=== PATIENT | female | born 1975 | race Caucasian/White ===

== ENCOUNTER 2017-03-26 20:00 | Inpatient (IN) | payer MEDICARE ==
[~2017-03-26] VITALS: Ht 167.6 cm; Wt 75.7 kg
--- NOTE | ~2017-03-26 | HP ---
Unit #: [id number] #: [id number] Patient: FAY HULL [id number] [place] [address] [id number] I MR#: [id number] NAME: FAY HULL. ROOM: 32 Age: 41 Sex: F Admission Date: 03/26/2017 : 1975 Attending Physician: Esequiel Herring M.D. Admitting Physician: Esequiel Herring M.D. Primary Care Physician: Freddy Worthy M.D. HISTORY AND PHYSICAL HISTORY OF PRESENT ILLNESS Fay is a 41 year old admitted to [address] [place] [address] with depression and verbalizing wanting to hurt herself. PAST MEDICAL HISTORY 1. History of ASD, repaired at [age] years old. 2. History of illicit drug use to include methamphetamine. PAST SURGICAL HISTORY 1. Above. 2. Low back. ALLERGIES No known drug allergies. SOCIAL HISTORY Smokes one pack per day. Denies alcohol. Admits to a history of illicit substance abuse to include methamphetamine. FAMILY HISTORY Medically noncontributory. REVIEW OF SYSTEMS CONSTITUTIONAL: No fever or chills. HEENT: Denies any sore throat, ear pain or runny nose. She does report redness in her right eye. She said she had a sty that partially resolved in the past 48 hours. She denies any problems with her vision. CARDIOVASCULAR: Denies chest pain, irregular heart rhythm or palpitations. CHEST: Denies shortness of breath or cough. No hemoptysis. GASTROINTESTINAL: Denies nausea, vomiting, diarrhea or chronic constipation. ENDOCRINE: Denies history of increased thirst or urination. No recent significant weight loss or gain. GENITOURINARY: Denies dysuria, frequency, or hematuria. SKIN: Denies any rashes. HEMATOLOGIC: Denies history of increased bleeding or bruising. MUSCULOSKELETAL: Denies any hot, swollen joints. No generalized muscle pain. NEUROLOGIC: Denies problems with vision or speech. No frequent, severe headaches. No numbness, tingling or weakness in any extremities. Denies loss of bladder or bowel control. Unit #: [id number] #: [id number] Patient: FAY HULL CURRENT MEDICATIONS 1. Celexa 20 mg q day 2. Desyrel 50 mg q.h.s. 3. Vistaril 25 mg t.i.d. 4. Nicotine patch 14 mg q day 5. Milk of Magnesia p.r.n. 6. Maalox p.r.n. 7. Tylenol p.r.n. 8. Ciloxan drops two drops q 4 hours times seven days PHYSICAL EXAMINATION GENERAL: Alert, well-nourished, in no apparent distress. VITAL SIGNS: Blood pressure 100/68, heart rate 80, respirations 16, temperature 98.6. WEIGHT: 167 pounds. HEIGHT: 5 foot 6 inches. SKIN: Warm and dry without rash or lesion. HEENT: Normocephalic. TMs not viewed. Oral and nasal passages clear. Right conjunctivae slightly injected with matting noted at the corner of the eye. Left eye normal. NECK: Supple without lymphadenopathy or thyromegaly. HEART: Regular rate and rhythm without murmur. LUNGS: Clear. ABDOMEN: Soft, nontender. : Not done. EXTREMITIES: No evidence of cyanosis, clubbing or edema. Moves all extremities without focal deficit. NEUROLOGICAL: Grossly within normal limits. Cranial Nerves: II: Visual piedra are intact. III, IV AND : Extraocular movements are intact. Pupils are equal, round and reactive to light. V: Facial sensation is grossly normal. VII: Facial movements and expression are normal. VIII: Auditory acuity grossly intact. IX, X: Uvula is midline. Phonation is normal. XI: Patient shrugs shoulders and turns head normally. XII: Tongue protrudes in the midline. Sensory and Motor Function: Sensory and motor sensation is grossly normal. Motor: moves all extremities well. Coordination: Gait is normal. Deep Tendon Reflexes: Intact. IMPRESSION 1. Psychiatric admission. 2. Right conjunctivitis. RECOMMENDATIONS PSYCHIATRIC: Per psychiatrist. MEDICAL: 1. I see no contraindications to participating in facility's activities. 2. Continue Ciloxan drops. MEDICAL PROGNOSIS Good. MEDICAL CONDITION Stable. Unit #: [id number] #: [id number] Patient: FAY HULL Dictated by... Susan Dugan P.A.-C. for Katie Hidalgo/meri TD: 03/28/2017 01:57 JOB #: [id number] HISTORY AND PHYSICAL Page 1 of 1 X Susan Dugan HISTORY AND PHYSICAL
--- NOTE | ~2017-03-26 | PN ---
Unit #: [id number] #: [id number] Patient: FAY HULL [id number] [facility] [address] [place] [address] [id number] I MR#: [id number] NAME: FAY HULL. ROOM: 32 Age: 41 Sex: F Admission Date: 03/26/2017 : 1975 Attending Physician: Esequiel Herring M.D. Admitting Physician: Esequiel Herring M.D. Primary Care Physician: Katie Watkins PROGRESS NOTES DATE OF SERVICE 03/28/2017 DISCUSSION Ms. Boyle is a 41-year-old female. The patient interviewed, chart reviewed. Obtained information from nursing staff. The patient continues to be withdrawn, isolative, flat affect. Sad, dysphoric mood. The patient reported having problem with anxiety, depression, passive SI. Complete Review of Systems: Unremarkable. MENTAL STATUS EXAMINATION General Appearance: The patient dressed casually. Attention span, concentration: Fair. Oriented in place and person. Mood and affect: Sad, depressed, withdrawn. Speech: Monotone. Thought process: [place]. The patient reported having suicidal ideation, disorganized, racing thoughts, tangential, guarded, aggressive, disruptive, noncompliant. Recent and remote memory: Poor. Insight and judgment: Poor. DIAGNOSES 1. Major depressive disorder, recurrent, severe. 2. Alcohol use disorder, severe. ASSESSMENT/PLAN Advised to continue with current medication and therapeutic protocol. If needed, consider further adjustment of medication. Dictated by... Katie Hamm/boris TD: 03/29/2017 11:30 JOB #: [id number] Unit #: [id number] #: [id number] Patient: FAY HULL PROGRESS NOTES Page 1 of 1 X Esequiel Herring MD X PROGRESS NOTE
--- NOTE | ~2017-03-26 | DS ---
Unit #: [id number] #: [id number] Patient: FAY HULL [id number] [facility] [address] [place] [address] [id number] I MR#: [id number] NAME: FAY HULL. ROOM: 32 Age: 41 Sex: F Admission Date: 03/26/2017 : 1975 Discharge Date: 03/30/2017 Attending Physician: Esequiel Herring M.D. Primary Care Physician: Freddy Worthy M.D. DISCHARGE SUMMARY REASON FOR ADMISSION Suicidal ideation. DIAGNOSTIC STUDIES Laboratory data unremarkable. HOSPITAL COURSE The patient was admitted to inpatient unit on March 26, 2017 and discharged on March 30, 2017. The patient was treated with group therapy, individual therapy, medication management, the patient responded to treatment. Subsequently, the patient was discharged with the plan to follow up in outpatient program. DISCHARGE DIAGNOSES Psychiatric: Vanduser I Major depressive disorder, recurrent, severe, F33.2. Alcohol use disorder, F10.20. Vanduser II Deferred. Vanduser III Open heart surgery. Back surgery. Vanduser IV Psychosocial stressors. Vanduser V INSTRUCTIONS TO PATIENT The patient is to follow up in outpatient clinic as well as oncology social work. DISCHARGE MEDICATIONS 1. Vistaril 25 mg three times a day for anxiety 2. Celexa 20 mg daily for depression 3. Desyrel 50 mg at bedtime for sleep CONDITION AT DISCHARGE The patient is pleasant and cooperative, denied any psychotic symptoms or any suicidal ideation. PROGNOSIS Guarded. DIET AND ACTIVITY As tolerated. Unit #: [id number] #: [id number] Patient: FAY HULL Dictated by... Katie Hamm/chin TD: 03/31/2017 08:55 JOB #: [id number] DISCHARGE SUMMARY Page 1 of 1 X Esequiel Herring MD X DISCHARGE SUMMARY
--- NOTE | ~2017-03-26 | PN ---
Unit #: [id number] #: [id number] Patient: FAY HULL [id number] [facility] [address] [place] [address] [id number] I MR#: [id number] NAME: FAY HULL. ROOM: 32 Age: 41 Sex: F Admission Date: 03/26/2017 : 1975 Attending Physician: Eseuqiel Herring M.D. Admitting Physician: Esequiel Herring M.D. Primary Care Physician: Katie Watkins PROGRESS NOTES DATE 03/29/2017 DISCUSSION Fay is a 41-year-old female, seen on 03/29/2017. The patient interviewed, chart reviewed, and obtained information from the nursing staff. The patient was compliant and cooperative. Mood sad and dysphoric, flat affect, and guarded. The patient isolative, compliant with medication, but denied any thoughts of harming self or others. REVIEW OF SYSTEMS Complete review of systems unremarkable. MENTAL STATUS EXAMINATION General appearance: Patient dressed casually. Attention span and concentration, fair. Oriented in place and person. Mood and affect, labile. Speech, monotone. Thought process, concrete. The patient denied any thoughts of harming self or others but isolative, guarded, seclusive. Recent and remote memory, poor. Insight and judgment, poor. DIAGNOSIS 1. Major depressive disorder, recurrent, severe. 2. Alcohol use disorder, severe. ASSESSMENT/PLAN Advised to continue with the current medication and therapeutic protocol, and if needed consider further adjustment of medication. Dictated by... Katie Hamm/chin TD: 03/30/2017 07:06 JOB #: [id number] Unit #: [id number] #: [id number] Patient: FAY HULL PROGRESS NOTES Page 1 of 1 X Esequiel Herring MD PROGRESS NOTE
--- NOTE | ~2017-03-26 | CO ---
Unit #: [id number] #: [id number] Patient: FAY HULL [id number] [place] [address] [id number] MR#: [id number] NAME: FAY HULL ROOM: P132 Age: 41 Sex: F Admission Date: 03/26/2017 : 1975 Attending Physician: Esequiel Herring M.D. Primary Care Physician: Freddy Worthy M.D. Consultation Date: 03/27/2017 CONSULTATION REPORT Fay is a 41-year-old who reported a stye along her right eye that has partially resolved in the past 48 hours. This area was examined and described under her admission H and P. Please see H and P dated 03/27/2017. Dictated by... Susan Dugan P.A.-C. for Katie Hidalgo/noreen TD: 03/27/2017 20:25 JOB #: [id number] CONSULTATION REPORT Page 1 of 1 X Susan Dugan CONSULTATION REPORT
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
[~2017-03-26 20:00] MED LIST: ATARAX; AUGMENTIN PO; BACLOFEN10 MG PO; CYMBALTA30 MG PO; FLEXERIL; FLEXERIL PO; IBUPROFEN; LAMICTAL; LORTAB 5/500 TA1 TA1 PO; MOBIC PO; TYLENOL #3 PO; ULTRAM; VICODIN PO; ZOLOFT
[2017-03-27 10:57] LABS: BASOPHIL# 0.2 X10e3 (0-0.3); BASOPHIL% 1.7 % (0-2.5); EOSINOPHIL# 0.3 X10e3 (0-0.7); EOSINOPHIL% 3.2 % (0.0-7.0); HEMATOCRIT 39.8 % (35.0-45.0); HEMOGLOBIN 13.3 gm/dL (12.0-16.0); LYMPHOCYTE# 5.6 X10e3 (1.0-3.5); LYMPHOCYTE% 52.3 % (17.0-45.0); MEAN CELL VOLUME 85.3 FL (83-96); MEAN CORPUSCULAR HEMOGLOBIN 28.5 PG (28-34); MEAN CORPUSCULAR HGB CONC 33.4 g/dL (30-36); MEAN PLATELET VOLUME 8.8 FL (6.5-11.5); MONOCYTE# 0.8 X10e3 (0-1.0); MONOCYTE% 7.1 % (3.0-12.0); NEUTROPHIL# 3.8 X10e3 (1.5-7.1); NEUTROPHIL% 35.7 % (40-75); PLATELET COUNT 301 X10e3 (140-420); RED BLOOD COUNT 4.66 X10e (3.90-5.30); RED CELL DISTRIBUTION WIDTH 13.8 % (11.0-15.5); WHITE BLOOD COUNT 10.7 X10e3 (4.0-10.5)
[2017-03-27 11:06] LABS: DIFF IND YES
[2017-03-27 11:36] LABS: PLATELET ESTIMATE NORMAL (NORMAL)
[2017-03-27 11:38] LABS: ALBUMIN SERUM 3.6 g/dL (3.5-5.0); BILIRUBIN,TOTAL 0.8 mg/dL (0.2-2.0); BUN/CREATININE RATIO 11.66; CALCIUM SERUM 8.7 mg/dL (8.4-10.2); CREATININE SERUM 0.6 mg/dL (0.6-1.4); GLOM FILT RATE Estimated 111.6 mL/min (>60); POTASSIUM 3.5 mmol/L (3.5-5.1); PROTEIN TOTAL SERUM 6.3 g/dL (6.0-8.3)
== END 2017-03-30 18:10 | disposition home or self-care (01) | DRG 885 ==
LOC: P1S 22:16
PROVIDERS: Psychiatry & Neurology Psychiatry
PROC: HZ2ZZZZ Detoxification Services for Substance Abuse Treatment (ICD-10-PCS; principal; 2017-03-26)
DX: F33.2 Major depressive disorder, recurrent severe without psychotic features (principal); R45.851 Suicidal ideations; F10.20 Alcohol dependence, uncomplicated; H00.013 Hordeolum externum right eye, unspecified eyelid; F17.210 Nicotine dependence, cigarettes, uncomplicated
CPT/HCPCS: 80053; 84703; 85025